=== PATIENT | male | born 1950 | race Caucasian/White ===

== ENCOUNTER 2016-06-03 13:02 | Inpatient (IN) | payer MEDICARE ==
[~2016-06-03] VITALS: Ht 188 cm; Wt 70.2 kg
[~2016-06-03 13:02] MED LIST: ADV500INH INH; ALBU1.25 INH; ALBU17IN INH; AMLO10TA2 PO; ASPI1TAB PO; ASPI81TAEC PO; AVEL1TAB PO; BROV15NE INH; BUDE0.254 INH; CARD120C3 PO; CELE10TA PO; COMP1TAB PO; DALI1TAB2 PO; DELT1TAB PO; DOXY100C PO; INCR1INH INH; IPRASOL4 INH; LEVA500T PO; LEVA750T PO; PENI250T57 PO; PRED10TA PO; PRED20TAB PO; PRED50TA PO; SING10TA32 PO; SYMB16INH INH; TIOT18INH INH
[2016-06-03] MEDS ORDERED: BUDE0.5S6 INH (14:10)
--- NOTE | 2016-06-03 14:22 | REP ---
PORTABLE CHEST, TWO VIEWS: HISTORY: Chest pain. COMPARISON: 05/15/2016 The lungs are hyperinflated. A linear density is present in the left lower lobe consistent with scar. A calcified granuloma is present in the left lower lobe. Calcified lymph nodes are present in the maricruz. There is blunting of the right costophrenic angle. The heart is normal in size. The pulmonary vasculature is normal in appearance. IMPRESSION: 1. COPD. 2. Old granulomatous disease. Signed by Trace Williamson MD 06/03/2016 04:14 P
[2016-06-03] MEDS ORDERED: IPRATROPIUM 0.5MG/ALBUTEROL 2.5MG INH SOL UD 3ML (DUONEB)(J7620) NEB ONE ×2 (14:30→17:30)
[2016-06-03] MEDS ORDERED: ISOVUE-370 76% 100ML VIAL (Q9967) As Ordered ONE (15:48)
[2016-06-03] MEDS ORDERED: SODIUM CHLORIDE 0.9% 1000 ML IV ONE (16:15)
[2016-06-03] MEDS ORDERED: NS 1,000 ML IV SCH (16:30)
[2016-06-03] MEDS ORDERED: MORPHINE 4 MG/ML 1ML SYRINGE IV ONE (16:30)
[2016-06-03] MEDS ORDERED: methylPREDNISolone INJ 125 MG/2 ML VIAL (J2930) IV ONE (16:45)
--- NOTE | 2016-06-03 17:28 | REP ---
CT ANGIO CHEST: REASON FOR EXAM: Dyspnea. COMPARISON EXAM: 05/20/2016 CTA chest obtained at [facility] and showing no evidence of a pulmonary embolus but chronic emphysematous changes. CONTRAST: 100 mL Isovue-370. The mediastinum and pulmonary artery maricruz are unchanged showing no evidence of a mass or adenopathy. There are no pleural or pericardial effusions. The imaged upper abdomen again shows splenomegaly. The images osseous structures show no significant changes from the prior exam. There is excellent visualization of the pulmonary arterial vasculature. There are no focal filling defects present, that would be considered consistent with pulmonary emboli. The pulmonary vascularity appears unchanged from the prior examination. There is no change in appearance of the thoracic aorta. Calcific atherosclerotic changes are again noted. Evaluation of the lung bravo show lung field hyperexpansion with scattered cystic air spaces status quo. There is an unchanged asymmetric pleural based density in the posterior segment of the right upper lobe. This area is unchanged or in fact somewhat smaller compared to the latest chest CT showing the area 10/31/2015. Two older chest CT's 09/15/2014 and 09/10/2014 show the area to be obscured by a right pleural effusion. Scattered asymmetric densities are again seen throughout the lung bravo essentially unchanged. No new abnormal parenchymal opacities have developed. IMPRESSION: 1. No evidence of a pulmonary embolus. 2. Marked emphysematous changes with chronic lung field findings as described above. 3. Splenomegaly which was present on the imaged upper abdomen on multiple prior exams, the etiology of which is uncertain and the spleen may be enlarging. It should be stated that this examination can not accurately assess for intraparenchymal splenic abnormalities due to the contrast injection timing being for the lung vasculature rather than the upper abdomen. If an intraparenchymal splenic abnormality is of clinical concern or if the patient has left upper quadrant pain then reevaluation with ultrasound at this time may prove helpful. No further intravenous contrast can be administered, however a followup examination could be obtained at a later date is necessary. Signed by Sotero Alegria DO 06/03/2016 07:04 P
--- NOTE | 2016-06-03 17:49 | REP ---
CT abdomen pelvis with IV but without oral contrast: History: Abdominal pain, epigastric pain. CT contrast dose: CT pulmonary angiogram was performed just prior to this study with 75 mL of Isovue 370. The patient has a history of CML. Comparison study is from 09/15/2014. CT findings: Digital preliminary sandblaster supervisor radiograph demonstrates massive splenomegaly today. The spleen is much larger than on the prior study. It measures 23.8 cm in craniocaudal span and largely fills the left mid abdomen. There are several somewhat wedge-shaped low density areas in the lower pole of the spleen, in the upper spleen anteriorly, and in the left mid spleen anteriorly consistent with splenic infarction. There is perisplenic fat streaking suggesting that this is acute or subacute. No focal hepatic lesion is seen other than granulomatous calcifications. There are multiple granulomatous calcifications also noted in the splenic parenchyma. There is opaque material in the dependent portion the gallbladder which may reflect gravel like gallstones. No adrenal lesion is seen. The kidneys enhance symmetrically. They are morphologically intact. No pancreatic abnormality is seen. Small and large intestinal bowel loops are unremarkable in the abdomen and pelvis. Urinary bladder is intact. There are dystrophic calcifications in the prostate. Impression: 1. Massive splenomegaly. 2. Multiple acute or subacute splenic infarcts scattered about the enlarged spleen. 3. Old granulomatous calcifications in the liver and spleen. 4. Gravel like calculi in the dependent portion of the gallbladder. Signed by Roby Jose MD 06/04/2016 12:24 P
--- NOTE | 2016-06-03 21:28 | HPEPDOC ---
General Date of Admission 06/03/16 09:30PM Chief Complaint The patient is a 65-year-old male admitted with a reason for visit of Shortness Of Breath. Source: Patient, Family Exam Limitations: No limitations Timing/Duration: Day(s) Severity: Moderate Associated Symptoms: Chest Pain History of Present Illness This is a 65-year old male with a PMHx of CMML - follows with Dr. Saxena, MDS, panlobular emphysema, anxiety, pulmonary hypertension and chronic hypoxic respiratory failure requiring 2.5L supplemental oxygen at baseline. He presents for several day history of worsening shortness of breath, cough productive of clear sputum and 'left sided pain' that involves his LLQ up to his left shoulder. Pain is relieved with rest and exacerbated with movement. He rates his pain as 5/10. He denies nausea, vomiting or diarrhea. Home Medications Scheduled Arformoterol Tartrate (Brovana) 15 Mcg/2 Ml Neb 15 MCG INH BID (Reported) Aspirin (Aspirin 81) 81 Mg Tab 81 MG PO DAILY (Reported) Budesonide (Budesonide) 0.5 Mg/2 Ml Neb 0.5 MG INH BID (Reported) Budesonide/Formoterol (Symbicort 160-4.5 Mcg/Act) 60 Puff/Inhaler Aers 2 PUFF INH BID (Reported) Roflumilast (Daliresp) 500 Mcg Tab 500 MCG PO DAILY (Reported) Scheduled PRN Atropine Sulfate (Atropine Sulfate) 1 % Maia 1-2 DROP PO Q2H PRN PRN TERMINAL SECRETIONS Use sublingually if unable to swallow MDD = 36 drops Lorazepam (Lorazepam) 1 Mg Tab 0.5 TAB PO Q4H PRN PRN ANXIETY/AGITATION Use sublingually if unable to swallow MDD = 3 mg Morphine Sulfate (Morphine Sulfate Concentrate) 10 Mg/0.5 Ml Conc 0.25-1 ML PO Q2H PRN PRN PAIN OR DYSPNEA Use sublingually if unable to swallow MDD = 12 ml Allergies Coded Allergies: No Known Allergies (Unverified , 09/15/14) Past Medical History Medical History As per HPI. Social History * Smoker: former Smoker Alcohol: Denies Drugs: denies Recent Travel/Sick Contacts: Denies: Recent sick contacts, Recent travel Review of Symptoms Constitutional: Denies: Chills, Fever, Malaise Eyes: Denies: Pain, Vision change ENT: Denies: Head Aches Pulmonary: Reports: Cough, Dyspnea, Pleuritic Chest Pain Cardiovascular: Reports: Chest Pain Gastrointestinal: Reports: Abdominal Pain, Denies: Diarrhea, Nausea, Vomiting Genitourinary: Denies: Dysuria Endocrine: Denies: Polydipsia Psych: Reports: Anxiety Physical Examination General Exam: Positive: Alert, Cooperative, Mild Distress Eye Exam: Positive: Conjunctiva & lids normal, PERRLA ENT Exam: Positive: Atraumatic, Mucous membr. moist/pink Neck Exam: Positive: Supple Chest Exam: Positive: Wheezing Heart Exam: Positive: Rate Normal, Regular Rhythm Telemetry: Positive: No significant arrhythmia Abdomen Exam: Positive: Normal bowel sounds, Soft, Tenderness Extremity Exam: Negative: Edema Psych Exam: Positive: Anxiety, Oriented x 3 Vital Signs Refer to ER documentation. Laboratory Data Labs 24H Laboratory Tests 2 06/03/16 13:25: Aspartate Amino Transf (AST/SGOT) 20, Alanine Aminotransferase (ALT/SGPT) 13, Alkaline Phosphatase 77, Total Bilirubin 1.4H, Direct Bilirubin 0.4H, Albumin 3.6, Albumin/Globulin Ratio 1.38, Anion Gap 10, Anisocytosis 2+, Atypical Lymphocytes 3, B-Type Natriuretic Peptide 17.1, Band Neutrophils 1, Basophils ( Manual) 1, Blastocytes 2H, Calcium Level 8.7L, Creatine Kinase MB 1.0, Creatine Kinase MB Relative Index 7.69H, Glomerular Filtration Rate > 60.0, Hypochromasia 2+, Lymphocytes (Manual) 4L, Metamyelocytes 4H, Monocytes (Manual ) 27H, Myelocytes 21H, Neutrophils 37, Nucleated Red Blood Cells 1H, Platelet Estimate DECREASED, Thyroid Stimulating Hormone (TSH) 2.970, Total Creatine Kinase 13L, Total Protein 6.2L, Troponin I < 0.02 06/03/16 13:51: Arterial Blood pH 7.472H, Arterial Blood Partial Pressure CO2 42.9, Arterial Blood Partial Pressure O2 86.5, Arterial Blood Total CO2 32.0H, Arterial Blood HCO3 30.7H, Arterial Blood Base Excess 6.4H, Arterial Blood Oxygen Saturation 97.3, Blood Gas Bicarbonate Standard 30.3H 06/03/16 15:08: Lactic Acid (Sepsis) 2.2*H 06/03/16 16:41: Arterial Blood pH 7.436, Arterial Blood Partial Pressure CO2 31.4L, Arterial Blood Partial Pressure O2 166.9H, Arterial Blood Total CO2 21.6L, Arterial Blood HCO3 20.7L, Arterial Blood Base Excess -3.1L, Arterial Blood Oxygen Saturation 99.5H, Blood Gas Bicarbonate Standard 21.9L CBC/BMP Laboratory Tests 06/03/16 13:25 Red Blood Count 3.21 L, Mean Corpuscular Volume 95.6, Mean Corpuscular Hemoglobin 28.8, Mean Corpuscular Hemoglobin Concent 30.1 L, Red Cell Distribution Width 21.5 H Microbiology Microbiology 06/03/16 Blood Culture, Received Pending 06/03/16 Blood Culture, Received Pending Problems (1) COPD with acute exacerbation Status: Acute Response to Treatment: Progressing Discussed With: Patient Problem Specific Plan: Monitor Clinically Problem Text: IV steroids, antimicrobials, incentive spirometry, supplemental oxygen to maintain O2 sat 88-92%. (2) Anxiety Status: Chronic Discussed With: Patient Problem Specific Plan: Monitor Clinically (3) MDS (myelodysplastic syndrome) Status: Chronic Discussed With: Patient Problem Specific Plan: Repeat Labs (4) CMML (chronic myelomonocytic leukemia) Status: Chronic Discussed With: Patient Problem Specific Plan: Repeat Labs Problem Text: thrombocytopenia, anemia - appears at baseline. significant leukocytosis possibly secondary to underlying infectious process vs progression of CMML patient states probably not interested in further treatment regarding his CMML azithromycin,cultures pending. (5) Splenomegaly Status: Acute Discussed With: Supervisor Net Making, Patient Problem Specific Plan: Monitor Clinically Problem Text: Discussed with general surgery Dr. Dawson, no intervention at this time. Plan / VTE VTE Prophylaxis Ordered?: Yes (mechanical) Plan Plan 65 male admitted for acute/chronic hypoxic respiratory failure. Leukocytosis in the setting of CMML/MDS. Cultures pending, antimicrobial therapy, supplemental oxygen, incentive spirometry, steroids. Diet: Continue Current Activity: Continue Current Therapy: PT, OT Pt and Family Services: Home Care Medications: Start Antibiotics, Start Steroids Respiratory: Wean Oxygen Diagnostics: Repeat Labs in AM, Obtain Cultures Anticipated Discharge: Home, Home With Services MYCHAL COUGHLIN MD Jun 03, 2016 21:25
[2016-06-03] MEDS ORDERED: AZITHROMYCIN INJ 500 MG, VIAL MATE ADAPTER 1 EACH in D5W 250 ML IV SCH (22:00)
[2016-06-03 22:15] VITALS: BP 150/60
[2016-06-04] MEDS ORDERED: ENTER DRUG NAME HERE (PATIENT'S OWN MED) SCH (00:14)
[2016-06-04] MEDS ORDERED: NICOTINE 2 MG PO PRN (00:40)
[2016-06-04] MEDS: IPRATROPIUM 0.5MG/ALBUTEROL 2.5MG INH SOL UD 3ML (DUONEB)(J7620) NEB PRN (01:14)
[2016-06-04] MEDS ORDERED: IBUPROFEN 600 MG TAB PO ONE (04:00)
[2016-06-04] MEDS ORDERED: methylPREDNISolone INJ 125 MG/2 ML VIAL (J2930) IV SCH ×2 (05:00→17:00)
[2016-06-04 06:00] VITALS: BP 123/68
[2016-06-04] MEDS: IPRATROPIUM 0.5MG/ALBUTEROL 2.5MG INH SOL UD 3ML (DUONEB)(J7620) NEB SCH ×4 (07:58→20:08)
--- NOTE | 2016-06-04 09:01 | ECGEPIP ---
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
[2016-06-04 09:39] VITALS: BP 137/63
[2016-06-04 11:57] VITALS: BP 130/63
[2016-06-04] MEDS ORDERED: NS 1,000 ML IV SCH (12:15)
--- NOTE | 2016-06-04 13:25 | IPN ---
DATE: 06/04/2016 Time patient was seen was this morning at 8:30. Patient has been seen and examined at bedside. Patient continued to have dyspnea and left upper abdominal pain, which radiated to left shoulder. Patient stated the pain continued to be sharp and constant. Patient otherwise, denies any nausea or vomiting. Denies any diarrhea or constipation. Denies any problem with urination. Denies any other current new complaints. PHYSICAL EXAMINATION: VITAL SIGNS: Temperature was 96.2, pulse 75, respiration 20, blood pressure 123/68, oxygen was saturating at 98%. GENERAL: Patient is a cachectic looking, elderly male who was alert, awake, oriented times three. Appears to be in moderate distress. Laying in bed with head elevated at 30-degrees. HEENT: Normocephalic, atraumatic. Extraocular motor intact. Mucosa moist. NECK: Supple. No neck lymphadenopathy. CARDIOVASCULAR: Regular rate and rhythm. S1, S2. No murmur, rubs, gallops. LUNGS: Clear to auscultation bilaterally. No wheeze, rales, rhonchi. However, he does have poor respiratory effort. ABDOMEN: Positive bowel sound. Soft. Mildly tender to palpation in the left upper quadrant. Otherwise, no peritoneal signs. No ecchymosis. EXTREMITIES: No edema, clubbing or cyanosis. SKIN: Warm and dry. NEUROLOGIC: Cranial nerves II-XII intact. No focal neurologic deficit. LABORATORIES: WBC this morning was 86.3 thousand, hemoglobin 7.6, hematocrit 25 and platelet count was 112 and MCV was 94.1%. There were also 22 monocyte, 6 metamyelocyte, 8 myelocyte and patient had 2 blast cells yesterday. Patient also had a peripheral smear. The result is pending. Sodium 138, potassium 3.7, chloride 99, bicarbonate 32, BUN 16, creatinine 0.64, GFR greater than 60, fasting glucose 142. Lactic acid last night was 1.4. Calcium 8.3. Last night, patient had a total CK of 14, CK-MB of 1 and CK-MB relative index of 7.14 with a troponin less than 0.02. Patient has blood culture times two are pending. MRSA screen is pending. Yesterday afternoon, patient had a CT of the pelvis and abdomen with and without contrast. It shows massive splenomegaly with spleen measured 23.8 cm and multiple acute or subacute splenic infarctions scattered about the enlarged spleen and old granulomatous calcifications in the liver and spleen. Gravel- like calculi in the dependent portion of the gallbladder. Patient also had a CT angiography of the chest, which shows no evidence for pulmonary embolism (PE). However, there were marked emphysematous changes with chronic lung field and also splenomegaly as described prior. ASSESSMENT AND PLAN: 65-year-old male with past medical history of Chronic myelomonocytic leukemia (CMML), myelodysplastic syndrome (MDS), shen lobar emphysema, anxiety, pulmonary hypertension and chronic hypoxic respiratory failure requiring 2.5 liters of supplemental oxygen at baseline, presented with: 1. Advanced CMML. Patient does have a white blood cell (WBC) elevated at 86.3 thousand and also shows a blast cells at 2. Patient also does have infractions at the spleen as well as having hypoxic respiratory failure, which has worsened. Otherwise, we will continue supportive therapy with Solu-Medrol and DuoNebs and azithromycin, and continue to monitor patient before the transferring. Case was discussed with oncologist at [facility], pathologist at [facility], and Dr. Dawn, with the consensus that the patient is not in an acute leukemic crisis. In addition, I would like to add that according to [facility] CMML prognostic model, patient is calculated to have a score of 3, which gives him a 10 month medium survival. In addition, overall CMML survival is about 30 month and he was diagnosed in 2015. 2. Splenic infarction. Dr. Dawson has been consulted. Recommended not to perform surgery at this point. We will continue to monitor. 3. Lactic acidosis with lactic acid of 2.2 initially. Repeat lactic acid last night was 1.4. We will continue to monitor. Likely secondary to leukostasis. 4. Chest pain with left upper abdominal pain likely secondary to splenic infarction. Patient has two times of cardiac markers, which has been negative, however relative index has been elevated. Therefore, we will repeat one more cardiac marker at 1 p.m. today and continue to monitor. 5. Possible acute chronic obstructive pulmonary disease (COPD) exacerbation. We will continue DuoNebs, steroid, azithromycin and supplemental oxygen. 6. Chronic anxiety. Continue home medication. 7. Anemia with hemoglobin of 7.6 today, which worsened from yesterday, 9.3. We are considering to transfuse patient. At this point, we will continue to monitor due patient is about to be transferred. If patient will not have a bed available, we are considering to obtain consent and transfuse patient. 8. Deep venous thrombosis (DVT) prophylaxis with sequential compressive device (SCD) only due to splenic infarction and the possibility of surgery. Patient has been discussed with attending doctor, Dr. Barakat. My preceptor for this patient encounter was Terry Barakat MD. The preceptor was physically present in the building during the encounter and was fully available. As needed, all aspects of the patient interview, examination, medical decision making process, and medical care plan development were reviewed and approved by the preceptor. The preceptor is aware and concurs with the plan as stated in the body of this note and will attest to such by his/her co-signature. DELIA
[2016-06-04] MEDS ORDERED: LevoFLOXacin IV 750 MG in APPROPRIATE DILUENT 1 EA IV SCH (14:00)
[2016-06-04 16:00] VITALS: BP 147/71
[2016-06-04] MEDS ORDERED: IPRATROPIUM 0.5MG/ALBUTEROL 2.5MG INH SOL UD 3ML (DUONEB)(J7620) NEB SCH (16:00)
[2016-06-04] MEDS ORDERED: VANCOMYCIN HCL 1,000 MG, VIAL MATE ADAPTER 1 EACH in D5W 250 ML IV SCH (16:00)
--- NOTE | 2016-06-04 16:52 | PHACANCOPD ---
PHARMACY VANCOMYCIN DOSING Pt Demographics Demographics Patient Age:65 , Weight:70.200 , Gender: male Adjusted Body Weight Date: 06/04/16, Adjusted Body Weight: Kg Events Past 24 Hours Events Past 24 Hours: YES: Elevation in WBC, NO: Change in CrCl, Dialysis, Diuretic Therapy, Fever, Other, Pending Diagnostics, Pending Procedures Vancomycin Vancomycin indication: ?sepsis Vancomycin Target Ranges: 15-20 mcg/ml Vancomycin Load Y/N: No Load Dose Date Time Vancomycin Load Dose: Date: Time: Vancomycin Dose Date: 06/04/16. Current Vancomycin Dose: [1g IV q8h @16] Intermittent Dosing?: No Labs Labs Item Value Date Time White Blood Count 86.3 K/mm3 *H 06/04/16 0557 White Blood Count 100.6 K/mm3 *H 06/04/16 1312 Creatinine 0.64 MG/DL L 06/04/16 0557 Creatinine 0.77 MG/DL 06/04/16 1312 Micro Microbiology 06/03/16 Blood Culture - Preliminary, Resulted No growth after 24 hours . All specim... 06/03/16 Blood Culture - Preliminary, Resulted No growth after 24 hours . All specim... 06/04/16 Gram Stain - Final, Resulted 06/04/16 Sputum Culture, Resulted Pending 06/04/16 MRSA Screen, Received Pending Creatinine Clearance Date:06/04/16. Creatinine Clearance: [>100ml/min]. Pending Labs Vanco trough scheduled 06/06 @07:00 Assessment and Plan Maintaining Current Dose?: Yes Reason for dose change: No Dose Change Pharmacist Note Pharmacist Note Date: 06/04/16. Pharmacist note: pt has been started on Vancomycin for sepsis, he has multiple comorbidities including COPD, MDS and CMML for which he follows with Dr. Saxena. He has not been on vancomycin at our facility in the past and he does not have an apparent Hx of MRSA. Blood, MRSA and sputum cultures are pending. I will start him on vancomycin 1g IV q8h. I have a trough scheduled for Monday morning. I will continue to monitor over the weekend. Brett Nava Pharm.D. Jun 04, 2016 16:52
[2016-06-04] MEDS: ASPIRIN 81 MG ENTERIC TAB PO SCH (16:54)
[2016-06-04] MEDS ORDERED: ALPRAZolam 0.25 MG TAB PO PRN (17:30)
[2016-06-04 20:00] VITALS: BP 154/72
[2016-06-04] MEDS: guaiFENesin ER 600 MG TAB PO SCH (21:15)
[2016-06-04] MEDS: ALPRAZolam 0.25 MG TAB PO PRN (22:09)
[2016-06-04] MEDS ORDERED: EPIDURAL/PCA KEYS XX PRN (23:00)
[2016-06-04] MEDS ORDERED: LORazepam 2 MG/ML VIAL (J2060) IV PRN (23:00)
[2016-06-04] MEDS ORDERED: SCOPOLAMINE 1.5 MG TRANSDERMAL TD PRN (23:00)
[2016-06-05] MEDS: ACETAMINOPHEN TAB 650MG DOSE (2X325MG) PO PRN (01:25)
[2016-06-05] MEDS: IPRATROPIUM 0.5MG/ALBUTEROL 2.5MG INH SOL UD 3ML (DUONEB)(J7620) NEB SCH ×7 (06:12→23:36)
[2016-06-05] MEDS: ASPIRIN 81 MG ENTERIC TAB PO SCH (09:37)
[2016-06-05] MEDS: guaiFENesin ER 600 MG TAB PO SCH ×2 (09:37→20:24)
[2016-06-05] MEDS: HYDROXYUREA 500 MG CAP PO SCH (09:40)
--- NOTE | 2016-06-05 09:59 | REP ---
Dyspnea. COMPARISON: 06/03/2016 The technique utilized in obtaining the radiograph has magnified the cardiac silhouette and accentuated the interstitial markings. Once again, marked emphysematous changes are present with lung field hyperexpansion and chronic lung field opacities status quo. The heart is not enlarged. No acute patchy parenchymal opacities or pleural effusions have developed. IMPRESSION: Marked emphysematous changes without plain radiographic evidence of acute cardiopulmonary disease. Signed by Sotero Alegria DO 06/05/2016 10:28 A
[2016-06-05] MEDS ORDERED: predniSONE 20 MG TAB PO ONE (10:45)
[2016-06-05] MEDS: MORPHINE 2 MG/ML 1ML SYRINGE IV PRN ×3 (10:47→19:33)
--- NOTE | 2016-06-05 14:13 | IPNPDOC ---
Text Note Date of Service The patient was seen on 06/05/16. NOTE Subjective: Pt has mild improvement of his dyspnea. 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 Objective: Vitals: (see below) General: No acute distress, laying comfortably in bed. HEENT: Moist mucous membranes. Neck: No JVD or lymphadenopathy Cardiac: RRR, No murmurs Pulm: Exp wheezing b/l. No rhonchi Abd: NT/ND + BS Ext: No edema or cyanosis Labs (see below) Images: Assessment/Plan 1. CMML-1 with progression of disease. Discussed case with Dr. Yang ( pathologist) - only 1 blast on peripheral smear - no leukemia crisis. Also discussed with Dr Desir in [facility] who believes this is a progression of CMML-1 and does not warrant transfer. Dr Dawn agrees that this is a progression of disease, has seen pt, started hydroxyurea, and the patient has opted for PORT CRANE OPERATOR status with hospice consult pending for tomorrow. Transfer has been canceled. 2. Splenic infarct, / #1; abd pain has resolved. Cont to monitor 3. Lactic acidosis, resovled 4. Acute decompensated COPD with exacerbation, on steroids and nebs. 5. Chronic anxiety - cont benzos 6. Anemia, chronic but stable. Transfuse for Hb <7 DVT prophy: SCDs Dispo: PORT CRANE OPERATOR with pending Hospice eval VS,Fishbone, I+O VS, Fishbone, I+O Vital Signs Date Time Temp Pulse Resp B/P Pulse Ox O2 Delivery O2 Flow Rate FiO2 06/05/16 09:40 Nasal Cannula 3.0 06/04/16 20:00 96.0 90 28 154/72 100 06/03/16 13:43 93 I&O- Last 24 Hours up to 6 AM 06/05/16 06:00 Intake Total 3435 ml Output Total 2125 ml Balance 1310 ml ROSARIO INGRAM MD Jun 05, 2016 14:13
[2016-06-05] MEDS: LORazepam 1 MG TAB PO PRN (20:24)
[2016-06-06] MEDS: IPRATROPIUM 0.5MG/ALBUTEROL 2.5MG INH SOL UD 3ML (DUONEB)(J7620) NEB SCH ×6 (04:00→23:40)
[2016-06-06] MEDS: MORPHINE 2 MG/ML 1ML SYRINGE IV PRN ×2 (05:05→08:27)
[2016-06-06] MEDS: IPRATROPIUM 0.5MG/ALBUTEROL 2.5MG INH SOL UD 3ML (DUONEB)(J7620) NEB PRN (05:06)
[2016-06-06] MEDS: LORazepam 1 MG TAB PO PRN (06:38)
[2016-06-06] MEDS: MORPHINE SULFATE CADD 100 MG in APPROPRIATE DILUENT 1 EA IV SCH ×2 (07:22→22:48)
[2016-06-06] MEDS: HYDROXYUREA 500 MG CAP PO SCH (08:28)
[2016-06-06] MEDS: predniSONE 20 MG TAB PO SCH (08:28)
[2016-06-06] MEDS: guaiFENesin ER 600 MG TAB PO SCH ×2 (08:28→20:35)
[2016-06-06] MEDS: ASPIRIN 81 MG ENTERIC TAB PO SCH (08:28)
--- NOTE | 2016-06-06 13:51 | IPNPDOC ---
Text Note Date of Service The patient was seen on 06/06/16. NOTE Subjective: Dyspnea improved. Denies any complaints.. Objective: Vitals: (see below) General: No acute distress, laying comfortably in bed. HEENT: Moist mucous membranes. Neck: No JVD or lymphadenopathy Cardiac: RRR, No murmurs Pulm: Exp wheezing b/l. No rhonchi Abd: NT/ND + BS Ext: No edema or cyanosis Labs (see below) Images: Assessment/Plan 1. CMML-1 with progression of disease. Discussed case with Dr. Yang ( pathologist) - only 1 blast on peripheral smear - no leukemia crisis. Also discussed with Dr Desir in [facility] who believes this is a progression of CMML-1 and does not warrant transfer. Dr Dawn agrees that this is a progression of disease, has seen pt, started hydroxyurea, and the patient has opted for DUPLICATOR PUNCH SET UP OPERATOR status with hospice consult pending for today. Transfer has been canceled. 2. Splenic infarct, 2/ #1; abd pain has resolved. Cont to monitor 3. Lactic acidosis, resovled 4. Acute decompensated COPD with exacerbation, on steroids and nebs. 5. Chronic anxiety - cont benzos 6. Anemia, chronic but stable. Transfuse for Hb <7 DVT prophy: SCDs Dispo: DUPLICATOR PUNCH SET UP OPERATOR with pending Hospice eval VS,Fishbone, I+O VS, Fishbone, I+O Vital Signs Date Time Temp Pulse Resp B/P Pulse Ox O2 Delivery O2 Flow Rate FiO2 06/06/16 08:37 18 06/05/16 19:35 Nasal Cannula 3.0 06/04/16 20:00 96.0 90 154/72 100 06/03/16 13:43 93 I&O- Last 24 Hours up to 6 AM 06/06/16 06:00 Intake Total 980 ml Output Total 1850 ml Balance -870 ml ROSARIO INGRAM MD Jun 06, 2016 13:51
--- NOTE | 2016-06-06 21:44 | CR ---
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 HISTORY OF PRESENT ILLNESS: Jarrett Mckenna is a 65-year-old gentleman with a history of CMML diagnosed in 2014. 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 He underwent a bone marrow biopsy after his diagnosis in August 2014 and it revealed chronic myelomonocytic leukemia with hypercellular marrow with 1% blasts with 84% ring sideroblasts, mild erythroid dysplasia and mild reticulin fibrosis. At that time, his white count was 35,000 with a platelet count of 27,000, hemoglobin of 14. He was admitted on 06/03/2016, with worsening shortness of breath and for COPD exacerbation. On admission, his white count was 82,000, hemoglobin of 9.3, platelet count of 104,000 with 2% blasts on peripheral blood. Peripheral smear was reviewed by Dr. Cooper and he was noted to have 1% blasts in the peripheral smear. He is currently having worsening shortness of breath and he currently requires 3 liters of oxygen by nasal cannula. I was called to see this patient today regarding his worsening leukocytosis and concern for progressive CMML. At his bedside, his son and his granddaughter are sitting. Patient is comfortable, although he does have 5-6 word dyspnea. He tells me that his shortness of breath has been progressively getting worse over the last few weeks, however, throughout the day he tells me that it has essentially stayed the same. He denies any chest pain. No fevers, night sweats, or weight loss. PAST MEDICAL HISTORY: 1. Severe COPD with panlobular emphysema. 2. Anxiety. 3. Pulmonary hypertension. 4. Chronic hypoxic respiratory failure requiring 2.5 liters supplemental oxygen at baseline. MEDICATIONS AT HOME: Include: - Brovana - aspirin - budesonide - roflumilast ALLERGIES: No known drug allergies. SOCIAL HISTORY: He has a greater than 40-pack year of tobacco use, occasional alcohol. He is currently functional with his activities of daily living (ADLs). FAMILY HISTORY: No history of malignancy in the family. PHYSICAL EXAMINATION: VITAL SIGNS: Blood pressure 147/71, heart rate 76, pulse oximetry 98% on 3 liters of oxygen via nasal cannula. GENERAL: ECOG of 2, he is cachectic. HEENT: No pallor. Anicteric sclerae. Oropharynx is clear. There is some temporal wasting. HEART: Regular rate and rhythm. LUNGS: He has some wheezes and decreased airway entry, no crackles. ABDOMEN: Soft, nontender, nondistended. He has 3-4 fingers of splenomegaly below the left costal margin. EXTREMITIES: No edema. LABORATORIES AND STUDIES: He had a CT angiogram done on admission to rule out pulmonary embolism on 06/03/2016, and it revealed no pulmonary embolism, however he had emphysematous changes consistent with his COPD and also splenomegaly. CT of the abdomen and pelvis noted splenomegaly with acute and subacute splenic infarct. IMPRESSION AND PLAN: 65-year-old gentleman with what appears to be progressively worsening chronic myelomonocytic leukemia. He has been treated in the past with azacytidine and Dacogen and is currently showing evidence of progressive disease in the setting of underlying severe chronic obstructive pulmonary disease (COPD). I discussed with the patient in detail at bedside, as well as with his son, regarding his progressive disease and that he has actually been treated with chemotherapy with minimal response. I discussed the alternatives, including hospice, and he is amenable to enrolling in hospice. I will discuss this today with Dr. Barakat. I also discussed starting low dose hydroxyurea in the setting of his progressive chronic myelomonocytic leukemia (CMML), however I am concerned about worsening anemia at this time. All questions were answered in detail.
[2016-06-07] MEDS: LORazepam 1 MG TAB PO PRN ×2 (00:07→20:21)
[2016-06-07] MEDS: MORPHINE 2 MG/ML 1ML SYRINGE IV PRN ×4 (00:07→22:00)
[2016-06-07] MEDS: IPRATROPIUM 0.5MG/ALBUTEROL 2.5MG INH SOL UD 3ML (DUONEB)(J7620) NEB SCH ×5 (04:00→21:14)
[2016-06-07] MEDS: ASPIRIN 81 MG ENTERIC TAB PO SCH (08:09)
[2016-06-07] MEDS: guaiFENesin ER 600 MG TAB PO SCH ×2 (08:09→20:20)
[2016-06-07] MEDS: HYDROXYUREA 500 MG CAP PO SCH (08:09)
[2016-06-07] MEDS: predniSONE 20 MG TAB PO SCH (08:09)
--- NOTE | 2016-06-07 15:38 | IPN ---
DATE: 06/07/2016 The patient is seen and examined. No acute events overnight. Reported mild dyspnea. No fevers or chills, chest pain, pressure, or discomfort. The patient is currently comfort measures only. PHYSICAL EXAMINATION: GENERAL: The patient is in no acute distress, lying comfortably. HEENT: Normocephalic, atraumatic. NECK: Supple. CARDIAC: Regular rate and rhythm. Normal S1, S2. PULMONARY: Bilateral mild wheeze, mildly tachypneic. ABDOMEN: Soft, nontender, nondistended. EXTREMITIES: No edema. ASSESSMENT AND PLAN: This is a 65-year-old male patient with underlying medical history of CMML, follows with Dr. Saxena, myelodysplastic syndrome, panlobular emphysema, anxiety, pulmonary hypertension, chronic hypoxic respiratory failure requiring 2 to 3 liters of oxygen at baseline, presented with worsening shortness of breath and productive cough, was found to have severe leukocytosis. 1. CMML with progression of disease. Case was discussed with Dr. Cooper and also Dr. Desir in [facility]. It is believed due to progression of CMML. Discussed with Dr. Dawn as well, who has been agreeable to the plan. The patient opted to be comfort measures only with hospice consultation. Hydroxyurea was started by Dr. Dawn. Appreciate assistance from oncology. 2. Splenic infarct with abdominal pain, resolved. Continue to monitor. 3. Lactic acidosis, resolved. 4. Acute decompensated chronic obstructive pulmonary disease (COPD). Steroids, nebulizer treatment, oxygen supplementation, morphine for shortness of breath given the patient is comfort measures only, scopolamine patch for terminal secretions. Pending hospice consultation. 5. Chronic anemia. Continue supportive care. 6. Deep vein thrombosis (DVT) prophylaxis. Sequential compression device (SCD). DISPOSITION: Comfort measures only. Pending hospice.
[2016-06-07] MEDS: MORPHINE SULFATE CADD 100 MG in APPROPRIATE DILUENT 1 EA IV SCH (22:46)
[2016-06-08] MEDS: IPRATROPIUM 0.5MG/ALBUTEROL 2.5MG INH SOL UD 3ML (DUONEB)(J7620) NEB SCH ×7 (00:09→23:10)
[2016-06-08] MEDS: oxyCODONE 5MG TAB PO PRN ×3 (00:37→20:07)
[2016-06-08] MEDS: HYDROXYUREA 500 MG CAP PO SCH (09:54)
[2016-06-08] MEDS: guaiFENesin ER 600 MG TAB PO SCH ×2 (09:54→20:07)
[2016-06-08] MEDS: ASPIRIN 81 MG ENTERIC TAB PO SCH (09:54)
[2016-06-08] MEDS: predniSONE 20 MG TAB PO SCH (09:55)
--- NOTE | 2016-06-08 15:28 | IPN ---
DATE: 06/08/2016 Patient seen and examined. No acute events overnight. Continues to have mild dyspnea with no significant change. Patient is currently COMFORT MEASURE ONLY. Denies any chest pain, pressure or discomfort. Denies any fevers or chills. Was soon informed by nursing staff that patient's daughter is seeking a second opinion from oncologist in [place] who requested the medical information to be sent. Situation was discussed with the patient, patient stated that he understands that his daughter is looking for a second opinion but he wishes to remain on comfort measures only until there is any concrete evidence that something can be done for his underlying oncological disorder. He is aware that as of right now that he is comfort measures only and we are not actively treating his disease, we are just keeping him comfortable, we are not doing aggressive testing and patient believes that this is what he wanted for now. PHYSICAL EXAMINATION: GENERAL: Patient in no acute distress, lying comfortably. HEENT: Normocephalic, atraumatic. NECK: Supple. CARDIAC: Regular rate and rhythm. Normal S1, S2. PULMONARY: Bilateral mild wheeze, mildly tachypneic. ABDOMEN: Soft, non-tender. Non-distended. EXTREMITIES: No edema. ASSESSMENT AND PLAN: This is a 65-year-old male patient with underlying medical history of CMML. Follows up with Dr. Saxena, myelodysplastic syndrome, panlobular emphysema, anxiety, pulmonary hypertension, chronic hypoxic respiratory failure requiring 2 to 3 liters of oxygen at baseline, presented with worsening shortness of breath and productive cough, was found to have severe leukocytosis. 1. Chronic myelomonocytic leukemia (CMML) with progression of the disease. Case was discussed with Dr. Cooper and also Dr. Desir in [facility]. It is believed due to be progression of CMML. Discussed with Dr. Dawn as well. Initially attempted to transfer patient to [place], but given that it is believed to be progression of CMML, there are no effective treatments at this time and patient opted to be comfort measures only with hospice consultation. Hydroxyurea was started by Dr. Dawn. Currently patient is comfort measure only but family is seeking second opinion from other oncologist in [place]. Medical information was requested. 2. Splenic infarct with abdominal pain, resolved. Continue to monitor. Pain medication as ordered. 3. Lactic acidosis, resolved. 4. Acute decompensated chronic obstructive pulmonary disease (COPD). Steroids, nebulizer treatment, oxygen supplementation, morphine for shortness of breath, scopolamine for terminal secretions. Hospice consultation. Patient currently comfort measure only 5. Chronic anemia. Supportive care. 6. Deep vein thrombosis (DVT) prophylaxis. Sequential compression device (SCD). DISPOSITION: Comfort measures only. Hospice consulted.
[2016-06-08] MEDS: MORPHINE SULFATE CADD 100 MG in APPROPRIATE DILUENT 1 EA IV SCH (22:24)
[2016-06-09] MEDS: IPRATROPIUM 0.5MG/ALBUTEROL 2.5MG INH SOL UD 3ML (DUONEB)(J7620) NEB SCH ×6 (03:25→23:26)
[2016-06-09] MEDS: LORazepam 1 MG TAB PO PRN ×3 (03:39→16:11)
[2016-06-09] MEDS: oxyCODONE 5MG TAB PO PRN ×4 (04:10→22:23)
[2016-06-09] MEDS: predniSONE 20 MG TAB PO SCH (08:00)
[2016-06-09] MEDS: guaiFENesin ER 600 MG TAB PO SCH ×2 (08:00→21:53)
[2016-06-09] MEDS: ASPIRIN 81 MG ENTERIC TAB PO SCH (08:00)
[2016-06-09] MEDS: HYDROXYUREA 500 MG CAP PO SCH (08:00)
--- NOTE | 2016-06-09 17:07 | IPN ---
DATE: 06/09/2016 No acute events overnight. Patient reported pain to be tolerable. She still has mild respiratory distress. Case discussed with clinical social work aide, Luke, who has discussed with the patient's son. As per patient's son, patient's daughter is seeking a second opinion and has the medical record to be sent over to [facility] but is agreeable that patient should remain COMFORT MEASURES ONLY in the meantime which patient also stated that this is what he wanted yesterday. In the conversation yesterday, he does not want further testing and wanted his care to be more comfort oriented. Patient currently denies any chest pain, pressure or discomfort. PHYSICAL EXAMINATION: GENERAL: Frail, in no acute distress, comfortable. HEENT: Normocephalic, atraumatic. NECK: Supple. CARDIAC: Regular rate and rhythm with normal S1, S2. PULMONARY: Diminished breath sounds bilaterally. No significant wheeze, mildly tachypneic. ABDOMEN: Soft, nontender, nondistended. EXTREMITIES: No edema of bilateral lower extremities. ASSESSMENT AND PLAN: This is a 65-year-old male patient with underlying medical history of chronic myelomonocytic leukemia (CMML), follows up with Dr. Saxena, also with myelodysplastic syndrome, panlobular emphysema, anxiety, pulmonary hypertension, chronic hypoxic respiratory failure requiring 2-3 liters of oxygen at baseline, who presented with worsening shortness of breath and productive cough, was found to have severe leukocytosis. 1. Chronic myelomonocytic leukemia with progression of the disease. Case was discussed with Dr. Cooper initially and also Dr. Desir at [facility] for possible transfer. It was believed that disease is progression of CMML and no additional treatment has been possible. Dr. Dawn from hematology/oncology has been consulted. It was believed mutually by all providers mentioned above that patient will not benefit from transfer to [place] given there is no effective treatment at this time. Subsequently, patient has opted for COMFORT MEASURES ONLY and hospice was consulted. Hydroxyurea was started by Dr. Dawn. Patient currently is comfortable but family has been seeking a second opinion from oncologist in [facility] ([facility]. Medical information has been requested. In the meantime, case was discussed with the patient and patient wished to remain COMFORT MEASURES ONLY until there is concrete evidence that treatment plan is possible. 2. Splenic infarct with abdominal pain, resolved. Continue to monitor. Pain medication as ordered. 3. Lactic acidosis, resolved. 4. Decompensated chronic obstructive pulmonary disease (COPD). Continue steroids and taper as tolerated. Continue nebulizers, oxygen supplementation, morphine for air hunger. 5. Chronic anemia. Supportive care. 6. Deep vein thrombosis (DVT) prophylaxis. Sequential compression device (SCD). DISPOSITION PLANNING: COMFORT MEASURES ONLY. Hospice consulted.
[2016-06-09] MEDS: MORPHINE SULFATE CADD 100 MG in APPROPRIATE DILUENT 1 EA IV SCH (22:19)
[2016-06-10] MEDS: oxyCODONE 5MG TAB PO PRN ×4 (03:11→20:19)
[2016-06-10] MEDS: IPRATROPIUM 0.5MG/ALBUTEROL 2.5MG INH SOL UD 3ML (DUONEB)(J7620) NEB SCH ×6 (03:39→23:08)
[2016-06-10] MEDS: HYDROXYUREA 500 MG CAP PO SCH (09:07)
[2016-06-10] MEDS: ASPIRIN 81 MG ENTERIC TAB PO SCH (09:07)
[2016-06-10] MEDS: guaiFENesin ER 600 MG TAB PO SCH ×2 (09:07→20:19)
[2016-06-10] MEDS: predniSONE 20 MG TAB PO SCH (09:08)
[2016-06-10] MEDS: LORazepam 1 MG TAB PO PRN (10:45)
--- NOTE | 2016-06-10 12:17 | IPN ---
DATE: 06/10/2016 Patient seen and examined. No acute events overnight. Denies any chest pain, pressure or discomfort. Reported breathing about the same as before. PHYSICAL EXAMINATION: Frail, in no acute distress, comfortable. HEENT: Normocephalic, atraumatic. NECK: Supple. CARDIAC: Regular, S1, S2. PULMONARY: Diminished breath sounds bilateral. No wheeze, rales or rhonchi. ABDOMEN: Soft, nontender, nondistended. EXTREMITIES: No edema of bilateral lower extremities. ASSESSMENT AND PLAN: This is a 65-year-old male patient with underlying medical history of chronic myelomonocytic leukemia (CMML) followed by Dr. Saxena, also with myelodysplastic syndrome, panlobular emphysema, anxiety, pulmonary hypertension, chronic hypoxic respiratory failure requiring 2-3 liters of oxygen at baseline, who presented with worsening shortness of breath and productive cough and was found to have severe leukocytosis. 1. Chronic myelomonocytic leukemia with progression of the disease. The case was discussed with Dr. Cooper and Dr. Desir at [facility] for possible transfer initially. It was believed that this was a progression of the patient's CMML and no treatment is available and Dr. Dawn from hematology/oncology was also consulted who was agreeable to Dr. Desir's assessment. Subsequently, discussion was held with the patient and the patient wanted to be comfort measures only. Dr. Dawn has also started Hydroxyurea. Hospice was consulted. The patient's daughter has been wanting to speak to another oncologist at [facility] for a second opinion. The patient is aware of that, but the patient does not want to change comfort measures only treatment plan. He is cain that he does not want to be any more aggressive than right now. He is okay with his daughter seeking a second opinion. 2. Splenic infarct with abdominal pain, resolved. Continue to monitor. Pain medication as ordered. 3. Lactic acidosis, resolved. 4. Decompensated chronic obstructive pulmonary disease (COPD). Continue steroids and taper as tolerated. Continue nebulizers treatment, oxygen supplementation and morphine for air hunger. 5. Chronic anemia. Supportive care. 6. Deep vein thrombosis (DVT) prophylaxis. Sequential compression device (SCD). DISPOSITION: Patient comfort measures only. Hospice has been consulted.
[2016-06-10] MEDS: MORPHINE SULFATE CADD 100 MG in APPROPRIATE DILUENT 1 EA IV SCH (19:52)
[2016-06-11] MEDS: oxyCODONE 5MG TAB PO PRN ×3 (00:07→19:34)
[2016-06-11] MEDS: LORazepam 1 MG TAB PO PRN ×2 (00:07→19:34)
[2016-06-11] MEDS: IPRATROPIUM 0.5MG/ALBUTEROL 2.5MG INH SOL UD 3ML (DUONEB)(J7620) NEB SCH ×6 (03:32→23:36)
[2016-06-11] MEDS: ASPIRIN 81 MG ENTERIC TAB PO SCH (10:11)
[2016-06-11] MEDS: predniSONE 20 MG TAB PO SCH (10:11)
[2016-06-11] MEDS: HYDROXYUREA 500 MG CAP PO SCH (10:12)
[2016-06-11] MEDS: guaiFENesin ER 600 MG TAB PO SCH ×2 (10:12→20:15)
[2016-06-11] MEDS: ALPRAZolam 0.25 MG TAB PO PRN (12:36)
--- NOTE | 2016-06-11 15:37 | IPN ---
DATE: 06/11/2016 Patient is seen and examined. No acute events overnight. Denies any significant pain. Continues to report mild dyspnea, no significant change. Denies any chest pain. PHYSICAL EXAMINATION: Patient is frail, in no acute distress, comfortable. HEENT: Normocephalic, atraumatic. NECK: Supple. CARDIAC: Regular, S1, S2. PULMONARY: Diminished breath sounds. No wheezes, rales, or rhonchi. ABDOMEN: Soft, nontender, nondistended. EXTREMITIES: No edema bilateral lower extremities. ASSESSMENT AND PLAN: This is a 65-year-old male patient with underlying medical history of chronic myelomonocytic leukemia (CMML) followed by Dr. Saxena, also with myelodysplastic syndrome, panlobular emphysema, anxiety, pulmonary hypertension, chronic hypoxic respiratory failure requiring 2-3 liters oxygen at baseline, who presented with worsening shortness of breath and productive cough, was found to have severe leukocytosis. 1. Progression of chronic myelomonocytic leukemia (CMML). Case discussed with Dr. Cooper and Dr. Desir at [facility] oncology for possible transfer. Initially it was believed that the patient's condition is a progression of chronic myelomonocytic leukemia (CMML) and no treatment is available. Dr. Dawn from hematology/oncology was consulted at [facility] and agreed with Dr. Desir's assessment. Subsequently, discussion was held with patient and family and patient elected to be comfort measures only. Dr. Dawn has started hydroxyurea. Hospice was consulted. Patient's daughter wanted to speak to another oncologist in [facility] for second opinion. Subsequently, medical record was requested. Patient is aware of the seeking of the second opinion but wanted to remain comfort measures only, does not want any change of his plan. does not want blood draws or any aggressive measures. 2. Splenic infarct with abdominal pain, currently resolved. Continue to monitor. Pain medication as prescribed. 3. Lactic acidosis, resolved. Continue to monitor. 4. Decompensated chronic obstructive pulmonary disease (COPD). Steroid taper as tolerated. Nebulizer treatment. Oxygen supplementation. Morphine for air hunger. 5. Chronic anemia. Supportive care. 6. Deep venous thrombosis (DVT) prophylaxis. Sequential compression device. DISPOSITION PLANNING: Comfort measures only. Hospice consulted.
[2016-06-12] MEDS: oxyCODONE 5MG TAB PO PRN ×4 (00:11→15:39)
[2016-06-12] MEDS: ALPRAZolam 0.25 MG TAB PO PRN ×2 (01:47→08:42)
[2016-06-12] MEDS: IPRATROPIUM 0.5MG/ALBUTEROL 2.5MG INH SOL UD 3ML (DUONEB)(J7620) NEB SCH ×6 (03:33→23:18)
[2016-06-12] MEDS: LORazepam 1 MG TAB PO PRN ×2 (04:19→15:39)
[2016-06-12] MEDS: HYDROXYUREA 500 MG CAP PO SCH (08:41)
[2016-06-12] MEDS: guaiFENesin ER 600 MG TAB PO SCH ×2 (08:42→20:53)
[2016-06-12] MEDS: predniSONE 20 MG TAB PO SCH (08:42)
[2016-06-12] MEDS: ASPIRIN 81 MG ENTERIC TAB PO SCH (08:43)
--- NOTE | 2016-06-12 10:36 | IPN ---
DATE: 06/12/2016 Patient is seen and examined. No acute events overnight. Denies any chest pain, pressure or discomfort. Respiration mild dyspnea at baseline. Denies any significant abdominal pain. PHYSICAL EXAMINATION: GENERAL: Patient alert, awake, comfortable, in no acute distress. HEENT: Normocephalic, atraumatic. Moist mucous membrane. NECK: Supple. CARDIAC: Regular, S1, S2. PULMONARY: Diminished breath sounds bilateral base. No wheezes, rales, or rhonchi. ABDOMEN: Soft, nontender, nondistended. EXTREMITIES: No edema bilateral lower extremities. ASSESSMENT AND PLAN: This is a 65-year-old male patient with underlying medical history of chronic myelomonocytic leukemia (CMML) followed by Dr. Saxena, also with myelodysplastic syndrome, panlobular emphysema, anxiety, pulmonary hypertension, chronic hypoxic respiratory failure requiring 2-3 liters of oxygen at baseline, presented with worsening shortness of breath and productive cough, and found to have severe leukocytosis. 1. Progression of chronic myelomonocytic leukemia (CMML). Case discussed with Dr. Cooper and Dr. Desir at [facility] oncology for possible transfer initially, but it was believed that the patient's condition and the progression of patient's chronic myelomonocytic leukemia (CMML) no effective treatment is available at this time. Dr. Dawn from [facility] hematology/oncology has also been consulted and agreed with Dr. Desir's assessment. Subsequently, discussion was held with patient and family and patient elected to be comfort measures only. Dr. Dawn has started hydroxyurea. Hospice has been consulted. Patient's daughter wanted to speak to another oncologist in [facility] for second opinion. Subsequently, medical record was sent. Patient is aware of the events of second opinion and is okay with it, but wished to remained comfort measures only, he does not want any change to his current plan and does not want further work-up in terms of blood draws, IV fluids, or any aggressive measures. 2. Splenic infarct with abdominal pain, currently improved. Continue to monitor. Pain medication as prescribed. 3. Lactic acidosis, resolved. Patient comfort measure only. 4. Decompensated chronic obstructive pulmonary disease (COPD). Taper steroid as tolerated. Nebulizer treatment. Oxygen supplementation. Morphine for air hunger. 5. Chronic anemia. Supportive care. 6. Deep venous thrombosis (DVT) prophylaxis. Sequential compression device. DISPOSITION PLANNING: Comfort measures only. Hospice consulted.
[2016-06-13] MEDS: oxyCODONE 5MG TAB PO PRN ×2 (00:08→09:04)
[2016-06-13] MEDS: LORazepam 1 MG TAB PO PRN ×2 (00:09→09:04)
[2016-06-13] MEDS: ACETAMINOPHEN TAB 650MG DOSE (2X325MG) PO PRN (02:02)
[2016-06-13] MEDS ORDERED: oxyCODONE 5MG TAB PO ONE (03:34)
[2016-06-13] MEDS: IPRATROPIUM 0.5MG/ALBUTEROL 2.5MG INH SOL UD 3ML (DUONEB)(J7620) NEB SCH ×6 (03:48→23:03)
[2016-06-13] MEDS: HYDROXYUREA 500 MG CAP PO SCH (09:04)
[2016-06-13] MEDS: ASPIRIN 81 MG ENTERIC TAB PO SCH (09:04)
[2016-06-13] MEDS: predniSONE 20 MG TAB PO SCH (09:04)
[2016-06-13] MEDS: guaiFENesin ER 600 MG TAB PO SCH ×2 (09:04→22:20)
[2016-06-13] MEDS: MORPHINE 10MG/0.5ML ORAL CONCENTRATE SOLUTION U/D SL PRN ×3 (12:19→22:27)
--- NOTE | 2016-06-13 13:11 | IPN ---
DATE OF SERVICE: 06/13/2016 Mr. Mckenna is feeling short of breath today. He is getting a nebulizer treatment currently, which is not relieving his shortness of breath. He is somewhat uncomfortable. No chest pain. There are no recent vital signs for me to review. He is tachypneic. Breathing is symmetrical with poor aeration bilaterally. Heart is distant sounding. He is not tachycardic. Abdomen is soft. There are no laboratories for me to review. My assessment is as follows: This is a 65-year-old with chronic myelomonocytic leukemia with myelodysplastic syndrome, panlobular emphysema, anxiety, pulmonary hypertension, chronic hypoxic respiratory failure requiring oxygen at baseline with increasing shortness of breath and cough with severe leukocytosis. The plan is as follows: 1. The patient has progressive chronic myelomonocytic leukemia (CMML). The patient and his family would like to pursue comfort care. At the same time, a second opinion has been asked for from [facility] ([facility], and medical record was sent. Currently, pursuing Hospice care. The patient is short of breath today, and so I am going to add oral morphine to his regimen. 2. The patient has splenic infarct with abdominal pain. He has no abdominal pain at this point. 3. The patient has decompensated chronic obstructive pulmonary disease (COPD). 4. The patient has mechanical deep venous thrombosis (DVT) prophylaxis. 5. The patient has comfort measures only. He will be followed by Dr. Wilkerson tomorrow.
[2016-06-14] MEDS ORDERED: BENZONATATE 100 MG CAP PO PRN (02:45)
[2016-06-14] MEDS: IPRATROPIUM 0.5MG/ALBUTEROL 2.5MG INH SOL UD 3ML (DUONEB)(J7620) NEB SCH ×6 (02:53→23:22)
[2016-06-14] MEDS: MORPHINE 10MG/0.5ML ORAL CONCENTRATE SOLUTION U/D SL PRN ×5 (03:17→11:59)
[2016-06-14] MEDS: HYDROXYUREA 500 MG CAP PO SCH (09:10)
[2016-06-14] MEDS: ASPIRIN 81 MG ENTERIC TAB PO SCH (09:10)
[2016-06-14] MEDS: predniSONE 20 MG TAB PO SCH (09:10)
[2016-06-14] MEDS: guaiFENesin ER 600 MG TAB PO SCH ×2 (09:10→21:13)
[2016-06-14] MEDS: LORazepam 1 MG TAB PO PRN (11:01)
[2016-06-15] MEDS: LORazepam 1 MG TAB PO PRN (01:55)
[2016-06-15] MEDS: MORPHINE 10MG/0.5ML ORAL CONCENTRATE SOLUTION U/D SL PRN ×3 (01:56→04:02)
[2016-06-15] MEDS: IPRATROPIUM 0.5MG/ALBUTEROL 2.5MG INH SOL UD 3ML (DUONEB)(J7620) NEB SCH ×5 (03:22→19:20)
[2016-06-15] MEDS: guaiFENesin ER 600 MG TAB PO SCH ×3 (10:38→20:30)
[2016-06-15] MEDS: HYDROXYUREA 500 MG CAP PO SCH (10:38)
[2016-06-15] MEDS: predniSONE 20 MG TAB PO SCH (10:38)
[2016-06-15] MEDS: ASPIRIN 81 MG ENTERIC TAB PO SCH (10:38)
[2016-06-15] MEDS ORDERED: ATRO1OPD PO (13:08)
[2016-06-15] MEDS ORDERED: LORA1TAB12 PO (13:08)
[2016-06-15] MEDS ORDERED: MORP1SOL PO (13:08)
--- NOTE | 2016-06-16 12:04 | DS.PDOC ---
Discharge Summary General Date of Admission Jun 03, 2016 at 21:30 Date of Discharge Jun 15, 2016 at 23:04 Specialist/Consultants Involve: ARIANA BARRAZA MD Discharge Summary PROCEDURES PERFORMED DURING STAY: None ADMITTING DIAGNOSES: 1. CMML 2. MDS 3. Panlobular emphysema 4. Anxiety 5. Pulmonary HTN 6. Acute/chronic hypoxic respiratory failure 7. Gram negative pneumonia 8. Sepsis 9. Severe protein calorie malnutrition DISCHARGE DIAGNOSES: Patient was [employer] and . CHIEF COMPLAINT: Shortness Of Breath. HISTORY OF PRESENT ILLNESS: 65-year old male with extensive pulmonary co- morbidities presented for several day history of worsening shortness of breath, cough productive of clear sputum and left sided pain from LLQ to left shoulder. HOSPITAL COURSE: Patient was admitted for acute/chronic respiratory distress secondary to COPD exacerbation, possibly complicated with pneumonia. He was noted to have severe leukocytosis in the setting of CMML. There was concern of blast crisis and oncology was consulted from [place], in addition to in house oncology. His leukocytosis was deemed to be progression of his CMML. Patient had stated that he was not interested in any further treatment with regards to his CMML. 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 His COPD exacerbation was treated with steroids and respiratory treatments. Ultimately the patient decided to proceed with comfort measures only which was implemented on 06/04/16. He was planned for discharge to hospice however he late evening 06/15/16. DISCHARGE MEDICATIONS: Patient . ALLERGIES: Please see below. PHYSICAL EXAMINATION ON DISCHARGE: Patient . LABORATORY DATA: Please see below. IMAGING: CT Abd/Pelvis Impression: 1. Massive splenomegaly. 2. Multiple acute or subacute splenic infarcts scattered about the enlarged spleen. 3. Old granulomatous calcifications in the liver and spleen. 4. Gravel like calculi in the dependent portion of the gallbladder CT Angio: IMPRESSION: 1. No evidence of a pulmonary embolus. 2. Marked emphysematous changes with chronic lung field findings as described above. 3. Splenomegaly which was present on the imaged upper abdomen on multiple prior exams, the etiology of which is uncertain and the spleen may be enlarging. It should be stated that this examination can not accurately assess for intraparenchymal splenic abnormalities due to the contrast injection timing being for the lung vasculature rather than the upper abdomen. If an intraparenchymal splenic abnormality is of clinical concern or if the patient has left upper quadrant pain then reevaluation with ultrasound at this time may prove helpful. No further intravenous contrast can be administered, however a followup examination could be obtained at a later date is necessary. Chest XRay IMPRESSION: Marked emphysematous changes without plain radiographic evidence of acute cardiopulmonary disease. DISPOSITION: 20 . DISCHARGE CONDITION: TIME SPENT ON DISCHARGE: Greater than 30 minutes. Vital Signs/I&Os Vital Signs Date Time Temp Pulse Resp B/P Pulse Ox O2 Delivery O2 Flow Rate FiO2 06/15/16 21:00 Nasal Cannula 3.0 06/15/16 04:35 18 I&O- Last 24 Hours up to 6 AM 06/16/16 06:00 Intake Total 240 ml Balance 240 ml Discharge Medications Scheduled Arformoterol Tartrate (Brovana) 15 Mcg/2 Ml Neb 15 MCG INH BID (Reported) Aspirin (Aspirin 81) 81 Mg Tab 81 MG PO DAILY (Reported) Budesonide (Budesonide) 0.5 Mg/2 Ml Neb 0.5 MG INH BID (Reported) Budesonide/Formoterol (Symbicort 160-4.5 Mcg/Act) 60 Puff/Inhaler Aers 2 PUFF INH BID (Reported) Roflumilast (Daliresp) 500 Mcg Tab 500 MCG PO DAILY (Reported) Scheduled PRN Atropine Sulfate (Atropine Sulfate) 1 % Maia 1-2 DROP PO Q2H PRN PRN TERMINAL SECRETIONS Use sublingually if unable to swallow MDD = 36 drops Lorazepam (Lorazepam) 1 Mg Tab 0.5 TAB PO Q4H PRN PRN ANXIETY/AGITATION Use sublingually if unable to swallow MDD = 3 mg Morphine Sulfate (Morphine Sulfate Concentrate) 10 Mg/0.5 Ml Conc 0.25-1 ML PO Q2H PRN PRN PAIN OR DYSPNEA Use sublingually if unable to swallow MDD = 12 ml Allergies Coded Allergies: No Known Allergies (Unverified , 09/15/14) MYCHAL COUGHLIN MD Jun 16, 2016 12:04
== END 2016-06-15 23:04 | disposition expired | DRG 840 ==
LOC: M ED 13:48 → M ED INP 21:30 → M MSPAV 22:15 → M ICU 06-04 09:34 → M MSPAV 06-05 05:48
PROVIDERS: ADMIT Internal Medicine; ATTEND Internal Medicine
DX: C93.10 Chronic myelomonocytic leukemia not having achieved remission (principal); E43 Unspecified severe protein-calorie malnutrition; A41.9 Sepsis, unspecified organism; J15.6 Pneumonia due to other Gram-negative bacteria; E87.2 Acidosis; J44.1 Chronic obstructive pulmonary disease with (acute) exacerbation; J96.11 Chronic respiratory failure with hypoxia; Z68.1 Body mass index [BMI] 19.9 or less, adult; D73.5 Infarction of spleen; D46.9 Myelodysplastic syndrome, unspecified; R16.1 Splenomegaly, not elsewhere classified; D64.9 Anemia, unspecified; I27.2 Other secondary pulmonary hypertension; F41.9 Anxiety disorder, unspecified; Z51.5 Encounter for palliative care; Z79.82 Long term (current) use of aspirin; Z79.899 Other long term (current) drug therapy; Z99.81 Dependence on supplemental oxygen; Z87.891 Personal history of nicotine dependence